=== PATIENT | male | born 1965 | race Caucasian/White ===

== ENCOUNTER 2016-06-04 04:04 | Emergency (ER) | payer OTHER ==
--- NOTE | 2016-06-14 07:22 | ER ---
ADMIT: 06/04/2016 RM/LOC: ER [facility] MR#: [id number] [facility] [id number] [place], [place] [id number] [place] [address] [place] [address] Emergency Room Report SEX: M AGE: 51 : 1965 DATE: 06/04/2016 ADDENDUM: A 51-year-old male who was brought in by fitting room maintenance mechanic's department for medical clearance to go to senior care. They are concerned that the patient is intoxicated and under the influence of alcohol. The patient appears to be in no distress but does not answer some of my questions as he was not cooperative. He denies any medical problems. Denies taking any medications or any allergies. The patient denies any injury this evening. On physical examination, he is alert, not in any distress. Heart has regular rate and rhythm. Lungs are clear to auscultation. At this point, the patient does appear in a stable condition to go to senior care and he is medically cleared. Discharged with a diagnosis of likely alcohol intoxication. Arnulfo Costa MD/ simran JOB #: [id number] CC: Arnulfo Costa MD, Attending Physician Oziel Salvador MD, Family Physician
== END 2016-06-04 04:30 ==
LOC: ER 04:04
DX: Z02.89 Encounter for other administrative examinations (principal); F10.129 Alcohol abuse with intoxication, unspecified; I10 Essential (primary) hypertension; F17.210 Nicotine dependence, cigarettes, uncomplicated